=== PATIENT | female | born 1940 | race African-American/Black ===

== ENCOUNTER → 2017-05-30 | Emergency (ER) | payer OTHER | END | disposition left against medical advice (07) | LOC: ER 13:32 | DX: R79.9 Abnormal finding of blood chemistry, unspecified (principal); Z53.21 Procedure and treatment not carried out due to patient leaving prior to being seen by health care provider ==

== ENCOUNTER 2017-07-10 03:37 | Emergency (ER) | payer OTHER ==
[~2017-07-10] VITALS: Ht 172.7 cm; Wt 113.4 kg
[2017-07-10] MEDS ORDERED: SODIUM CHLORIDE 0.9% 500 ML IVB ONE (04:52)
[2017-07-10 05:03] LABS: Basophils # (auto) 0.1 uL; Eosinophils # (auto) 0.2 uL; Eosinophils % (auto) 1.4 % (0.0-7.0); Hematocrit 36.8 % (36.0-46.0); Lymphocytes # (auto) 2.3 uL; Lymphocytes % (auto) 16.9 % (10.0-50.0); Mean Corpuscular Hemoglobin 30.3 pg (28.0-32.0); Mean Corpuscular Hgb Conc. 32.7 g/dL (32.0-36.0); Mean Corpuscular Volume 92.8 fL (80.0-100.0); Mean Platelet Volume 7.8 fL (6.9-10.8); Monocytes # (auto) 0.6 uL; Monocytes % (auto) 4.4 % (0.0-12.0); Neutrophils # (auto) 10.2 uL; Neutrophils % (auto) 76.3 % (37.0-80.0); Platelet Count (auto) 196 10^3/uL (140-450); White Blood Cell 13.4 10^3/uL (4.4-10.8)
[2017-07-10 05:22] LABS: Albumin 3.6 g/dL (3.4-5.0); Alkaline Phosphatase 81 U/L (45-117); Anion Gap 12 (5-15); Aspartate Aminotransferase 45 U/L (15-37); BUN/Creatinine Ratio 16.3; Bilirubin, Total 0.3 mg/dL (0.2-1.0); Blood Urea Nitrogen 20 mg/dL (7-18); Calcium 8.2 mg/dL (8.5-10.1); Carbon Dioxide 24 mmol/L (21-32); Chloride 106 mmol/L (98-107); GFR African American 55 mL/min; GFR Non-African American 45 mL/min; Glucose 183 mg/dL (74-106); Potassium 3.8 mmol/L (3.5-5.1); Sodium 142 mmol/L (136-145); Total Protein 7.8 g/dL (6.4-8.2)
[2017-07-10] MEDS ORDERED: LORazepam 2MG/ML-1ML VIAL ONE (05:51)
[2017-07-10] MEDS ORDERED: LEVETIRACETAM 500 MG/5ML INJ IV ONE (05:52)
[2017-07-10] MEDS ORDERED: LEVETIRACETAM INJ 1,000 MG in SODIUM CHL 0.9% 100 ML IV ONE (05:55)
[2017-07-10] MEDS ORDERED: LORazepam 2MG/ML-1ML VIAL IV ONE (05:55)
[2017-07-10 08:57] LABS: INR 0.93 (0.9-1.15); Partial Thromboplastin Time 24.6 sec (22.64-33.71); Prothrombin Time 10.1 sec (9.37-12.3)
[2017-07-10 14:36] VITALS: BP 153/66
== END 2017-07-10 14:51 | disposition short-term general hospital (02) ==
LOC: ER 03:37 → EDUNIT# 03:37 → ER 14:51
DX: R56.9 Unspecified convulsions (principal); I10 Essential (primary) hypertension; E07.89 Other specified disorders of thyroid; E78.5 Hyperlipidemia, unspecified
CPT/HCPCS: 36415; 70450; 71010; 80053; 80320; 82962; 84484; 85025; 85610; 85730; 93005; 94761; 96361; 96365; 96375; 99285; J1953; J2060; J7040

== ENCOUNTER 2017-12-27 22:50 | Emergency (ER) | payer OTHER ==
[~2017-12-27] VITALS: Ht 152.4 cm; Wt 69.9 kg
[2017-12-27 23:09] VITALS: BP 125/54
== END 2017-12-27 23:28 | disposition left against medical advice (07) ==
LOC: ER 22:52
DX: M79.605 Pain in left leg (principal); Z53.21 Procedure and treatment not carried out due to patient leaving prior to being seen by health care provider